=== PATIENT | male | born 1980 | race American Indian/Alaskan Native ===

== ENCOUNTER 2017-04-18 19:11 | Emergency (ER) | payer MEDICAID ==
[2017-04-18 19:14] VITALS: BP 134/78; PULSE 76; RESP 16; TEMP 98; O2SAT 100
--- NOTE | 2017-04-18 20:16 | ED PDOC ---
HPI: Psych/Substance Abuse Time Seen by Provider: 04/18/17 20:00 Chief Complaint (Nursing): Psychiatric Evaluation Chief Complaint (Provider): i had a panic attack ED Caveat: Acuity of Condition History Per: Patient History/Exam Limitations: no limitations Current Symptoms Are (Timing): Better Modifying Factor(s): Other (cigarretes) Associated Symptoms: Anxiety. denies: Agitation, Depression, Paranoia, Suicidal Thoughts Involuntary Hold By: None Additional History Per: Patient Additional Complaint(s): 37yo male hx anxiety states he was given a cigarrete in the homeless care home which may have been laced with something. [place] jittery, "floating", anxious afterwards. Denies suicidal thoughts. States has had panic attacks in the past, none recently. Past Medical History Reviewed: Historical Data, Nursing Documentation, Vital Signs Vital Signs: Last Vital Signs Temp 98.0 F 04/18/17 19:14 Pulse 76 04/18/17 19:14 Resp 16 04/18/17 19:14 BP 134/78 04/18/17 19:14 Pulse Ox 100 04/18/17 19:14 - Medical History PMH: Anxiety - Surgical History Surgical History: No Surg Hx - Family History Family History: States: Unknown Family Hx - Living Arrangements Living Arrangements: Other (care home) - Social History Current smoker - smoking cessation education provided: No - Allergies Allergies/Adverse Reactions: Allergies Allergy/AdvReac Type Severity Reaction Status Date / Time No Known Allergies Allergy Verified 03/23/17 04:28 Review of Systems Constitutional: Negative for: Fever, Chills Cardiovascular: Positive for: Palpitations. Negative for: Chest Pain Respiratory: Negative for: Cough, Shortness of Breath Gastrointestinal: Negative for: Nausea, Vomiting Genitourinary Male: Negative for: Dysuria Musculoskeletal: Negative for: Neck Pain, Shoulder Pain Skin: Negative for: Rash, Lesions Neurological: Negative for: Weakness, Numbness Psych: Positive for: Anxiety. Negative for: Depression, Suicidal ideation Physical Exam - Reviewed Nursing Documentation Reviewed: Yes Vital Signs Reviewed: Yes - Physical Exam Appears: Positive for: Well, Non-toxic, No Acute Distress Head Exam: Positive for: ATRAUMATIC, NORMAL INSPECTION, NORMOCEPHALIC Skin: Positive for: Normal Color, Warm, DRY Eye Exam: Positive for: EOMI, Normal appearance, PERRL ENT: Positive for: Normal ENT Inspection Neck: Positive for: Normal, Painless ROM Cardiovascular/Chest: Positive for: Regular Rate, Rhythm Respiratory: Positive for: CNT, Normal Breath Sounds Gastrointestinal/Abdominal: Positive for: Normal Exam, Bowel Sounds, Soft Back: Positive for: Normal Inspection Extremity: Positive for: Normal ROM Neurologic/Psych: Positive for: Alert, Oriented, Mood/Affect (anxious but communicative) - ECG O2 Sat by Pulse Oximetry: 100 Medical Decision Making Medical Decision Making: pt wished exam to take place w girlfriend on speakerphone Will check EKG, initiate xanax 0.5mg PO x1 and re-eval. 10p- per report he told RN he was going across street to get food, RN told patient to stay in room and MD would be back to re-eval. 1015p- patient left, has not returned 1025p- assumed elopement. Phone number not working. Patient had xanax >90min [employer], seen well appearing and gait was stable with stable vitals. Disposition - Clinical Impression Clinical Impression: Anxiety - Patient ED Disposition Is Patient to be Admitted: No - Disposition Disposition: Eloped Disposition Time: 22:21 Condition: STABLE Forms: [employer] (Maltese)
--- NOTE | 2017-04-19 19:06 | CARD ---
APPROVED REPORT EKG Measurement Heart [id number] <Conclusion> Normal sinus rhythm Normal ECG
== END 2017-04-19 | disposition home or self-care (01) ==
LOC: H.ER 19:11
DX: F41.0 Panic disorder [episodic paroxysmal anxiety] (principal)

== ENCOUNTER 2017-07-05 03:53 | Emergency (ER) | payer MEDICAID ==
[2017-07-05 04:07] VITALS: BP 126/73; PULSE 82; RESP 16; TEMP 98.4; O2SAT 97
--- NOTE | 2017-07-05 04:12 | ED PDOC ---
HPI: Psych/Substance Abuse Time Seen by Provider: 07/05/17 04:06 Chief Complaint (Nursing): Anxiety Current Symptoms Are (Timing): Gone Now Associated Symptoms: denies: Anger Additional History Per: Patient Additional Complaint(s): PAtient was in care home and states the heat was on despite warm weather, states he felt like he was suffocating in the heat, states that once he got outside, all his symptoms resolved. Denies suicidal or homicidal thoughts. Past Medical History Reviewed: Historical Data, Nursing Documentation, Vital Signs Vital Signs: Last Vital Signs Temp 98.4 F 07/05/17 04:05 Pulse 82 07/05/17 04:05 Resp 16 07/05/17 04:05 BP 126/73 07/05/17 04:05 Pulse Ox 97 07/05/17 04:05 - Medical History PMH: Anxiety - Family History Family History: States: Unknown Family Hx - Allergies Allergies/Adverse Reactions: Allergies Allergy/AdvReac Type Severity Reaction Status Date / Time No Known Allergies Allergy Verified 03/23/17 04:28 Review of Systems ROS Statement: Except As Marked, All Systems Reviewed And Found Negative Psych: Positive for: Anxiety Physical Exam - Reviewed Nursing Documentation Reviewed: Yes Vital Signs Reviewed: Yes - Physical Exam Appears: Positive for: Well, Non-toxic, No Acute Distress Head Exam: Positive for: ATRAUMATIC, NORMAL INSPECTION, NORMOCEPHALIC Skin: Positive for: Normal Color, Warm, DRY Eye Exam: Positive for: EOMI, Normal appearance, PERRL ENT: Positive for: Normal ENT Inspection Neck: Positive for: Normal, Painless ROM Cardiovascular/Chest: Positive for: Regular Rate, Rhythm Respiratory: Positive for: CNT, Normal Breath Sounds Gastrointestinal/Abdominal: Positive for: Normal Exam, Soft Back: Positive for: Normal Inspection Extremity: Positive for: Normal ROM Neurologic/Psych: Positive for: Alert, child and family therapist II-XII, Oriented, Mood/Affect (normal , pleasant). Negative for: Motor/Sensory Deficits - ECG O2 Sat by Pulse Oximetry: 97 Medical Decision Making Medical Decision Making: Patient with resolved anxiety, anxious over heat in care home. No danger to himself at this time. Will d/c home. Disposition - Clinical Impression Clinical Impression: Anxiety attack - Patient ED Disposition Is Patient to be Admitted: No - Disposition Referrals: [facility] [Outside] [facility] [[facility] Disposition: Routine/Home Disposition Time: 04:12 Condition: STABLE Instructions: Anxiety, Adult (DC)
== END 2017-07-05 06:54 | disposition home or self-care (01) ==
LOC: H.ER 03:53
DX: F41.0 Panic disorder [episodic paroxysmal anxiety] (principal)

== ENCOUNTER 2017-11-10 06:49 | Emergency (ER) | payer MEDICAID ==
[2017-11-10 06:56] VITALS: BP 135/94; PULSE 76; RESP 16; TEMP 98.3; O2SAT 99
[2017-11-10] MEDS ORDERED: Sodium Chloride 0.9% 1,000 ML IV STA (07:34)
--- NOTE | 2017-11-10 07:58 | ED PDOC ---
HPI: Influenza Time Seen by Provider: 11/10/17 07:00 Chief Complaint: Flu-like Symptoms Chief Complaint (Provider): Headache History Per: Patient Exam Limitations: no limitations Onset/Duration Of Symptoms: Days (x2) Additional complaint(s):: Spencer Hughes, a 37 year old male with no significant past medical history, presents to the emergency department with a headache associated with generalized weakness onset 2 days ago. Patient states he woke up this morning and had difficulty talking and walking. He reports feeling numb in the left side of his body and pain on the bottom of his left foot. Patient states he has been walking a lot recently and believes that could contribute to some of his symptoms. He states that he had chills last night and took Ibuprofen which helped alleviate his headache. His girlfriend reports that he has been eating normally but was coughing in his sleep last night and this morning he was moving funny and had difficulty moving. She notes how much time it took him to walk places. Paramedics were called and patient was brought to the emergency department. Patient denies fever, chest pain, nausea, vomiting, diarrhea, stool or urinary abnormalities, difficulty breathing or neck pain. No further medical complaints. Past Medical History Reviewed: Historical Data, Nursing Documentation, Vital Signs Vital Signs: Last Vital Signs Temp 98.3 F 11/10/17 06:54 Pulse 76 11/10/17 06:54 Resp 16 11/10/17 06:54 BP 135/94 H 11/10/17 06:54 Pulse Ox 99 11/10/17 06:54 - Medical History PMH: Anxiety - Surgical History Surgical History: Hernia Repair (right side of groin) - Family History Family History: States: Unknown Family Hx - Allergies Allergies/Adverse Reactions: Allergies Allergy/AdvReac Type Severity Reaction Status Date / Time No Known Allergies Allergy Verified 03/23/17 04:28 Review of Systems ROS Statement: Except As Marked, All Systems Reviewed And Found Negative Constitutional: Positive for: Chills. Negative for: Fever Cardiovascular: Negative for: Chest Pain Respiratory: Negative for: Shortness of Breath Gastrointestinal: Negative for: Nausea, Vomiting, Diarrhea, Constipation, Melena , Hematochezia Genitourinary Male: Negative for: Dysuria, Frequency, Incontinence, Hematuria Musculoskeletal: Positive for: Foot Pain (bottom of left foot). Negative for: Neck Pain Neurological: Positive for: Weakness, Numbness (left side of body) Physical Exam - Reviewed Nursing Documentation Reviewed: Yes Vital Signs Reviewed: Yes - Physical Exam Appears: Positive for: Well, Non-toxic, No Acute Distress Head Exam: Positive for: ATRAUMATIC, NORMAL INSPECTION, NORMOCEPHALIC Eye Exam: Positive for: EOMI, Normal appearance, PERRL ENT: Positive for: Normal ENT Inspection Neck: Positive for: Normal, Painless ROM, Supple Cardiovascular/Chest: Positive for: Regular Rate, Rhythm Respiratory: Positive for: Normal Breath Sounds. Negative for: Respiratory Distress Neurologic/Psych: Positive for: Alert, Oriented Medical Decision Making Medical Decision Making: Time: 7:00 Initial Impression: headache, fatigue Initial Plan: --Alcohol serum --CMP --ED urine dipstick --CBC w/ differential --Glucose --Sodium Chloride 1000 ml IV --Tylenol 650 mg PO --IV insertion Scribe Attestation: Documented by Yeni Redd, acting as a scribe for Larisa Patterson MD. Provider Scribe Attestation: All medical record entries made by the Scribe were at my direction and personally dictated by me. I have reviewed the chart and agree that the record accurately reflects my personal performance of the history, physical exam, medical decision making, and the department course for this patient. I have also personally directed, reviewed, and agree with the discharge instructions and disposition. 8.30a - patient left hospital without reason. Based on patient's registration address, it appears that he is undomiciled. [facility] contacted by RN. - Laboratory Results Result Diagrams: 11/10/17 07:55 11/10/17 07:55 - ECG O2 Sat by Pulse Oximetry: 99 Disposition - Clinical Impression Clinical Impression: Headache - Disposition Disposition: Left W/O Treatment Disposition Time: 08:30 Condition: FAIR Forms: [email or web address] (Malay) - POA Present On Arrival: None
[2017-11-10 08:11] LABS: BASO % 0.7 % (0.0-2.0); EOS # 0.3 K/uL (0.0-0.7); HEMOGLOBIN 14.9 g/dL (12.0-18.0); LYMPH # 2.7 K/uL (1.0-4.3); LYMPH % 41.6 % (20.0-40.0); MEAN CORPUSCULAR HEMOGLOBIN 30.3 pg (27.0-31.0); MEAN PLATELET VOLUME 7.5 fl (7.2-11.7); MONO # 0.5 K/uL (0.0-0.8); MONO % 7.1 % (0.0-10.0); NEUT % 46.6 % (50.0-75.0); NRBC % 0.1 % (0.0-0.0); RBC 4.93 Mil/uL (4.40-5.90); RED CELL DISTRIBUTION WIDTH 14.5 % (11.5-14.5); WHITE BLOOD COUNT 6.5 K/uL (4.8-10.8)
[2017-11-10 08:21] LABS: ALB/GLOB RATIO 1.5 (1.0-2.1); ALBUMIN 4.3 g/dL (3.5-5.0); ALT/SGPT 34 U/L (21-72); AST/SGOT 36 U/L (17-59); BLOOD UREA NITROGEN 11 mg/dl (9-20); CALCIUM 9.4 mg/dL (8.4-10.2); GFR NON-AFRICAN AMERICAN > 60
== END 2017-11-10 08:30 | disposition left against medical advice (07) ==
LOC: H.ER 06:49
DX: R51 Headache (principal)
CPT/HCPCS: 80053; 80320; 82948; 85025; 99283; J7030